=== PATIENT | female | born 1945 | race African-American/Black ===

== ENCOUNTER 2016-11-06 08:47 | Inpatient (IN) | payer MEDICARE, MEDICAID ==
[~2016-11-06] VITALS: Ht 170.2 cm; Wt 61.8 kg
[~2016-11-06 08:47] MED LIST: AMLO10TA80; ASPI-867 PO; CLOP75TA16 PO; DIAZ10TA4; HYDR1TAB4; LEVO100T9; PHEN100C4; SIMV40TA5
[2016-11-06 11:16] LABS: BASOPHILS % 0.9 % (0.0-2.0); EOSINOPHILS % 4.1 % (0.0-5.0); HEMATOCRIT. 27.4 % (36.0-48.0); HEMOGLOBIN. 9.2 g/dL (12.0-16.0); LYMPHOCYTES % 34.1 % (20.0-50.0); MEAN CORPUSCULAR HEMOGLOBIN 32.7 pg (28.0-32.0); MEAN CORPUSCULAR VOLUME 97.2 fL (81.0-99.0); MEAN PLATELET VOLUME 8.3 fl (7.4-10.4); MONOCYTES % 7.3 % (2.0-8.0); NEUTROPHILS % 53.6 % (40.0-76.0); PLATELET 294 x1000/uL (130-400); RED BLOOD CELL COUNT 2.82 mill/uL (4.2-5.4); RED CELL DISTRIBUTION WIDTH 17.3 % (11.6-14.6)
[2016-11-06 11:35] LABS: CARBON DIOXIDE 27 mEq/L (21-32); CHLORIDE 104 mEq/L (98-107); ETHANOL BLOOD < 10 mg/dL; INR 1.1; PROTHROMBIN TIME 11.4 sec (9.4-11.6); TROPONIN I < 0.02 ng/mL (0.00-0.04)
[2016-11-06 11:44] LABS: CREATINE KINASE 1944 IU/L (26-192)
[2016-11-06] MEDS ORDERED: POTASSIUM CHLORIDE 20MEQ TABLET SR PO ONE (12:15)
[2016-11-06 16:00] VITALS: BP 166/84
[2016-11-06] MEDS ORDERED: CLONIDINE 0.1MG TABLET PO PRN (16:15)
[2016-11-06] MEDS ORDERED: IPRATROPIUM/ALBUTEROL 0.5-3(2.5)MG/3ML NEB INH PRN (16:15)
[2016-11-06] MEDS ORDERED: ONDANSETRON HCL 4MG/2ML VIAL IV PRN (16:15)
[2016-11-06] MEDS ORDERED: POTASSIUM CHLORIDE 20MEQ TABLET SR PO NR (16:30)
[2016-11-06] MEDS: AMLODIPINE 10MG TABLET PO SCH (17:47)
[2016-11-06] MEDS: ENOXAPARIN 40MG/0.4ML SYR SUBCUT SCH (17:48)
[2016-11-06] MEDS: MORPHINE SULFATE 4 MG/ML CPJ (NOT FOR IM USE) IV PRN ×2 (17:48→21:38)
[2016-11-06 20:00] VITALS: BP 140/80
[2016-11-06] MEDS: SODIUM CHLORIDE 0.9% 1,000 ML IV SCH (21:39)
[2016-11-06 23:39] LABS: CREATINE KINASE 1863 IU/L (26-192)
[2016-11-07] VITALS: BP 124/78
[2016-11-07 04:49] VITALS: BP 120/64
[2016-11-07 06:43] LABS: BASOPHILS % 1.3 % (0.0-2.0); EOSINOPHILS % 8.2 % (0.0-5.0); HEMATOCRIT. 29.1 % (36.0-48.0); HEMOGLOBIN. 9.8 g/dL (12.0-16.0); LYMPHOCYTES % 37.6 % (20.0-50.0); MEAN CORPUSCULAR VOLUME 97.6 fL (81.0-99.0); MEAN PLATELET VOLUME 8.1 fl (7.4-10.4); MONOCYTES % 8.7 % (2.0-8.0); NEUTROPHILS % 44.2 % (40.0-76.0); PLATELET 281 x1000/uL (130-400); RED BLOOD CELL COUNT 2.98 mill/uL (4.2-5.4); RED CELL DISTRIBUTION WIDTH 17.2 % (11.6-14.6)
[2016-11-07] MEDS: PHENYTOIN SODIUM EXTENDED 100MG CAPSULE PO SCH (06:47)
[2016-11-07] MEDS ORDERED: LEVOTHYROXINE SODIUM 125MCG TABLET PO SCH (07:20)
[2016-11-07 07:36] LABS: CARBON DIOXIDE 26 mEq/L (21-32); CHLORIDE 106 mEq/L (98-107); HDL CHOLESTEROL 42 mg/dL (40-59); LDL CHOLESTEROL 222 mg/dL (5-100)
[2016-11-07 07:46] LABS: CREATINE KINASE 1608 IU/L (26-192)
[2016-11-07 08:00] VITALS: BP 130/73
[2016-11-07] MEDS: CLOPIDOGREL 75MG TABLET PO SCH (08:43)
[2016-11-07] MEDS: AMLODIPINE 10MG TABLET PO SCH (08:43)
[2016-11-07] MEDS: ASPIRIN 325MG EC TABLET PO SCH (08:44)
[2016-11-07] MEDS ORDERED: LEVOTHYROXINE SODIUM 100MCG TABLET PO SCH (09:00)
[2016-11-07] MEDS: SODIUM CHLORIDE 0.9% 1,000 ML IV SCH (09:45)
[2016-11-07 11:30] VITALS: BP 129/67
[2016-11-07] MEDS: MORPHINE SULFATE 4 MG/ML CPJ (NOT FOR IM USE) IV PRN ×2 (11:56→22:19)
[2016-11-07 16:01] VITALS: BP 100/50
[2016-11-07] MEDS: ENOXAPARIN 40MG/0.4ML SYR SUBCUT SCH (17:07)
[2016-11-07 20:00] VITALS: BP 110/57
[2016-11-07] MEDS ORDERED: ATORVASTATIN CALCIUM 20MG TABLET PO SCH (21:00)
[2016-11-08] VITALS: BP 123/62
[2016-11-08 04:00] VITALS: BP 107/56
[2016-11-08 06:29] LABS: BASOPHILS % 1.1 % (0.0-2.0); EOSINOPHILS % 8.5 % (0.0-5.0); HEMATOCRIT. 29.2 % (36.0-48.0); HEMOGLOBIN. 9.8 g/dL (12.0-16.0); LYMPHOCYTES % 31.2 % (20.0-50.0); MEAN CORPUSCULAR HEMOGLOBIN 32.5 pg (28.0-32.0); MEAN CORPUSCULAR VOLUME 97.2 fL (81.0-99.0); MONOCYTES % 7.4 % (2.0-8.0); NEUTROPHILS % 51.8 % (40.0-76.0); PLATELET 330 x1000/uL (130-400); RED BLOOD CELL COUNT 3.01 mill/uL (4.2-5.4); RED CELL DISTRIBUTION WIDTH 17.4 % (11.6-14.6)
[2016-11-08] MEDS: PHENYTOIN SODIUM EXTENDED 100MG CAPSULE PO SCH (06:45)
[2016-11-08] MEDS: LEVOTHYROXINE SODIUM 175MCG TABLET PO SCH (06:46)
[2016-11-08 08:00] VITALS: BP 95/55
[2016-11-08 08:28] LABS: CARBON DIOXIDE 25 mEq/L (21-32); CHLORIDE 104 mEq/L (98-107)
[2016-11-08] MEDS: AMLODIPINE 10MG TABLET PO SCH (08:55)
[2016-11-08] MEDS: CLOPIDOGREL 75MG TABLET PO SCH (09:08)
[2016-11-08] MEDS: ASPIRIN 325MG EC TABLET PO SCH (09:09)
[2016-11-08 11:00] VITALS: BP 114/54
[2016-11-08] MEDS: MORPHINE SULFATE 4 MG/ML CPJ (NOT FOR IM USE) IV PRN (11:28)
[2016-11-08] MEDS: POTASSIUM CHLORIDE 20MEQ TABLET SR PO SCH (12:33)
[2016-11-08 16:00] VITALS: BP 101/59
[2016-11-08] MEDS: ENOXAPARIN 40MG/0.4ML SYR SUBCUT SCH (17:31)
[2016-11-08 20:00] VITALS: BP 109/53
[2016-11-08] MEDS: ATORVASTATIN CALCIUM 40MG TABLET PO SCH (21:58)
[2016-11-09] VITALS: BP 150/60
[2016-11-09 04:00] VITALS: BP 110/57
[2016-11-09] MEDS: MORPHINE SULFATE 4 MG/ML CPJ (NOT FOR IM USE) IV PRN ×3 (05:44→21:30)
[2016-11-09] MEDS: LEVOTHYROXINE SODIUM 175MCG TABLET PO SCH (07:01)
[2016-11-09] MEDS: PHENYTOIN SODIUM EXTENDED 100MG CAPSULE PO SCH (07:01)
[2016-11-09 07:36] VITALS: BP 121/65
[2016-11-09] MEDS: POTASSIUM CHLORIDE 20MEQ TABLET SR PO SCH ×2 (08:34→08:44)
[2016-11-09] MEDS: CLOPIDOGREL 75MG TABLET PO SCH (08:34)
[2016-11-09] MEDS: ASPIRIN 325MG EC TABLET PO SCH (08:34)
[2016-11-09] MEDS: AMLODIPINE 10MG TABLET PO SCH (08:35)
[2016-11-09] MEDS: POTASSIUM CHLORIDE 20MEQ/PACKET PO SCH (10:39)
[2016-11-09 11:25] VITALS: BP 107/51
[2016-11-09 16:00] VITALS: BP 106/52
[2016-11-09] MEDS: ENOXAPARIN 40MG/0.4ML SYR SUBCUT SCH (17:08)
[2016-11-09 20:00] VITALS: BP 121/60
[2016-11-09] MEDS: ATORVASTATIN CALCIUM 40MG TABLET PO SCH (21:30)
[2016-11-10] VITALS: BP 106/55
[2016-11-10 04:00] VITALS: BP 142/76
[2016-11-10] MEDS: PHENYTOIN SODIUM EXTENDED 100MG CAPSULE PO SCH (06:25)
[2016-11-10] MEDS: LEVOTHYROXINE SODIUM 175MCG TABLET PO SCH (06:25)
[2016-11-10 07:25] VITALS: BP 124/68
[2016-11-10] MEDS: POTASSIUM CHLORIDE 20MEQ/PACKET PO SCH (09:08)
[2016-11-10] MEDS: ASPIRIN 325MG EC TABLET PO SCH (09:10)
[2016-11-10] MEDS: CLOPIDOGREL 75MG TABLET PO SCH (09:10)
[2016-11-10] MEDS: AMLODIPINE 10MG TABLET PO SCH (09:10)
[2016-11-10 12:00] VITALS: BP 130/54
[2016-11-10 15:33] VITALS: BP 107/50
[2016-11-10] MEDS: ENOXAPARIN 40MG/0.4ML SYR SUBCUT SCH (16:14)
[2016-11-10] MEDS: DOCUSATE SODIUM 100MG CAPSULE PO SCH (17:46)
[2016-11-10 19:02] LABS: BASOPHILS % 1.5 % (0.0-2.0); EOSINOPHILS % 7.1 % (0.0-5.0); HEMATOCRIT. 32.3 % (36.0-48.0); HEMOGLOBIN. 10.7 g/dL (12.0-16.0); LYMPHOCYTES % 30.4 % (20.0-50.0); MEAN CORPUSCULAR HEMOGLOBIN 32.5 pg (28.0-32.0); MEAN CORPUSCULAR VOLUME 98.4 fL (81.0-99.0); MEAN PLATELET VOLUME 7.3 fl (7.4-10.4); MONOCYTES % 10.6 % (2.0-8.0); NEUTROPHILS % 50.4 % (40.0-76.0); PLATELET 333 x1000/uL (130-400); RED BLOOD CELL COUNT 3.28 mill/uL (4.2-5.4); RED CELL DISTRIBUTION WIDTH 18.2 % (11.6-14.6)
[2016-11-10 19:16] LABS: CARBON DIOXIDE 25 mEq/L (21-32); CHLORIDE 105 mEq/L (98-107)
[2016-11-10 20:00] VITALS: BP 122/59
[2016-11-10] MEDS: ATORVASTATIN CALCIUM 40MG TABLET PO SCH (20:28)
[2016-11-10] MEDS: MORPHINE SULFATE 4 MG/ML CPJ (NOT FOR IM USE) IV PRN (22:23)
[2016-11-11] VITALS (7 sets, daily range): BP systolic 101–169; BP diastolic 50–116
[2016-11-11] MEDS: LEVOTHYROXINE SODIUM 175MCG TABLET PO SCH (06:52)
[2016-11-11] MEDS: PHENYTOIN SODIUM EXTENDED 100MG CAPSULE PO SCH (06:52)
[2016-11-11 07:10] LABS: BASOPHILS % 1.3 % (0.0-2.0); EOSINOPHILS % 8.7 % (0.0-5.0); HEMATOCRIT. 28.1 % (36.0-48.0); HEMOGLOBIN. 9.4 g/dL (12.0-16.0); LYMPHOCYTES % 29.3 % (20.0-50.0); MEAN CORPUSCULAR HEMOGLOBIN 33.1 pg (28.0-32.0); MEAN CORPUSCULAR VOLUME 98.8 fL (81.0-99.0); MEAN PLATELET VOLUME 7.6 fl (7.4-10.4); MONOCYTES % 11.8 % (2.0-8.0); NEUTROPHILS % 48.9 % (40.0-76.0); PLATELET 335 x1000/uL (130-400); RED BLOOD CELL COUNT 2.85 mill/uL (4.2-5.4); RED CELL DISTRIBUTION WIDTH 18.9 % (11.6-14.6)
[2016-11-11 07:24] LABS: CARBON DIOXIDE 24 mEq/L (21-32); CHLORIDE 107 mEq/L (98-107)
[2016-11-11] MEDS: CLOPIDOGREL 75MG TABLET PO SCH (09:03)
[2016-11-11] MEDS: DOCUSATE SODIUM 100MG CAPSULE PO SCH (09:03)
[2016-11-11] MEDS: ASPIRIN 325MG EC TABLET PO SCH (09:03)
[2016-11-11] MEDS: MORPHINE SULFATE 4 MG/ML CPJ (NOT FOR IM USE) IV PRN (09:48)
[2016-11-11] MEDS: ENOXAPARIN 40MG/0.4ML SYR SUBCUT SCH (17:36)
[2016-11-11] MEDS: ATORVASTATIN CALCIUM 40MG TABLET PO SCH (20:53)
[2016-11-11] MEDS: ACETAMINOPHEN 325MG TABLET PO PRN (23:01)
[2016-11-12 00:51] VITALS: BP 120/62
[2016-11-12 04:37] VITALS: BP 110/54
[2016-11-12] MEDS: LEVOTHYROXINE SODIUM 175MCG TABLET PO SCH (06:13)
[2016-11-12] MEDS: PHENYTOIN SODIUM EXTENDED 100MG CAPSULE PO SCH (06:13)
[2016-11-12 08:00] VITALS: BP 95/49
[2016-11-12] MEDS: ASPIRIN 325MG EC TABLET PO SCH (08:17)
[2016-11-12] MEDS: CLOPIDOGREL 75MG TABLET PO SCH (08:17)
[2016-11-12] MEDS: DOCUSATE SODIUM 100MG CAPSULE PO SCH (08:17)
[2016-11-12] MEDS: ACETAMINOPHEN 325MG TABLET PO PRN (08:20)
[2016-11-12 12:00] VITALS: BP 120/61
[2016-11-12 16:00] VITALS: BP 134/62
[2016-11-12 16:29] VITALS: BP 134/62
== END 2016-11-12 16:55 | disposition home or self-care (01) | DRG 351 ==
LOC: ER 09:11 → 6WST 12:08 → ENRESERV 12:43
PROVIDERS: ADMIT Internal Medicine Nephrology; ATTEND Internal Medicine Nephrology
DX: M62.82 Rhabdomyolysis (principal); E43 Unspecified severe protein-calorie malnutrition; J96.10 Chronic respiratory failure, unspecified whether with hypoxia or hypercapnia; I95.9 Hypotension, unspecified; Z93.0 Tracheostomy status; S09.90XA Unspecified injury of head, initial encounter; J44.9 Chronic obstructive pulmonary disease, unspecified; R13.10 Dysphagia, unspecified; I69.351 Hemiplegia and hemiparesis following cerebral infarction affecting right dominant side; D64.9 Anemia, unspecified; G40.909 Epilepsy, unspecified, not intractable, without status epilepticus; E87.6 Hypokalemia; E03.9 Hypothyroidism, unspecified; E78.00 Pure hypercholesterolemia, unspecified; H54.7 Unspecified visual loss; I10 Essential (primary) hypertension; I25.10 Atherosclerotic heart disease of native coronary artery without angina pectoris; R29.6 Repeated falls; F32.9 Major depressive disorder, single episode, unspecified; W18.30XA Fall on same level, unspecified, initial encounter; Z82.49 Family history of ischemic heart disease and other diseases of the circulatory system; Z91.81 History of falling; Z87.891 Personal history of nicotine dependence; Z98.61 Coronary angioplasty status; Z99.3 Dependence on wheelchair; Z79.82 Long term (current) use of aspirin; Z79.899 Other long term (current) drug therapy; Y93.89 Activity, other specified; Y92.89 Other specified places as the place of occurrence of the external cause; Y99.8 Other external cause status; Z68.21 Body mass index [BMI] 21.0-21.9, adult
CPT/HCPCS: 36415; 70450; 71010; 73060; 73502; 73552; 80048; 80053; 80061; 80185; 82550; 83735; 83880; 84443; 84484; 85025; 85610; 86850; 86900; 92523; 92610; 93970; 97110; 97116; 97163; 97167; 97530; 99285; G0482; J1650; J2270; J7030

== ENCOUNTER 2017-04-10 06:36 | Emergency (ER) | payer MEDICARE, MEDICAID ==
[~2017-04-10] VITALS: Ht 167.6 cm; Wt 59.0 kg
[2017-04-10 09:25] LABS: EOSINOPHILS % 4.6 % (0.0-5.0); HEMATOCRIT. 31.3 % (36.0-48.0); HEMOGLOBIN. 10.4 g/dL (12.0-16.0); LYMPHOCYTES % 28.5 % (20.0-50.0); MEAN CORPUSCULAR HEMOGLOBIN 33.8 pg (28.0-32.0); MEAN CORPUSCULAR VOLUME 101.1 fL (81.0-99.0); MONOCYTES % 8.8 % (2.0-8.0); NEUTROPHILS % 57.1 % (40.0-76.0); PLATELET 259 x1000/uL (130-400); RED BLOOD CELL COUNT 3.09 mill/uL (4.2-5.4); RED CELL DISTRIBUTION WIDTH 16.7 % (11.6-14.6)
[2017-04-10 09:30] LABS: INR 1.1
[2017-04-10 09:35] LABS: CHLORIDE 105 mEq/L (98-107)
[2017-04-10 09:40] LABS: TROPONIN I < 0.02 ng/mL (0.00-0.04)
[2017-04-10 13:45] VITALS: BP 128/71
== END 2017-04-10 14:27 | disposition home or self-care (01) ==
LOC: ER 06:36
DX: J06.9 Acute upper respiratory infection, unspecified (principal); I44.0 Atrioventricular block, first degree; D53.9 Nutritional anemia, unspecified; I69.351 Hemiplegia and hemiparesis following cerebral infarction affecting right dominant side; I10 Essential (primary) hypertension; E11.9 Type 2 diabetes mellitus without complications; G40.909 Epilepsy, unspecified, not intractable, without status epilepticus; E03.9 Hypothyroidism, unspecified; R74.0 Nonspecific elevation of levels of transaminase and lactic acid dehydrogenase [LDH]; Z93.0 Tracheostomy status; Z79.82 Long term (current) use of aspirin
CPT/HCPCS: 36415; 71045; 80053; 83880; 84484; 85025; 85610; 93005; 99283; 99285

== ENCOUNTER 2017-04-10 16:04 | Emergency (ER) | payer MEDICARE, MEDICAID ==
[~2017-04-10] VITALS: Ht 165.1 cm; Wt 60.0 kg
[2017-04-10 16:32] VITALS: BP 118/64
== END 2017-04-10 17:46 | disposition home or self-care (01) ==
LOC: ER 16:22
DX: Z00.00 Encounter for general adult medical examination without abnormal findings (principal); E11.9 Type 2 diabetes mellitus without complications; I10 Essential (primary) hypertension; Z86.73 Personal history of transient ischemic attack (TIA), and cerebral infarction without residual deficits; Z79.82 Long term (current) use of aspirin
CPT/HCPCS: 99283

== ENCOUNTER 2017-08-03 12:45 | Emergency (ER) | payer MEDICARE, MEDICAID ==
[~2017-08-03] VITALS: Ht 170.2 cm; Wt 68.0 kg
[2017-08-03 14:23] LABS: BASOPHILS % 1.3 % (0.0-2.0); EOSINOPHILS % 7.4 % (0.0-5.0); HEMATOCRIT. 30.7 % (36.0-48.0); HEMOGLOBIN. 10.2 g/dL (12.0-16.0); LYMPHOCYTES % 32.6 % (20.0-50.0); MEAN CORPUSCULAR HEMOGLOBIN 34.4 pg (28.0-32.0); MEAN CORPUSCULAR VOLUME 103.6 fL (81.0-99.0); MONOCYTES % 12.5 % (2.0-8.0); NEUTROPHILS % 46.2 % (40.0-76.0); RED BLOOD CELL COUNT 2.96 mill/uL (4.2-5.4)
[2017-08-03 14:25] LABS: CHLORIDE 108 mEq/L (98-107)
[2017-08-03 14:27] LABS: INR 1.2
[2017-08-03 14:48] LABS: MEAN PLATELET VOLUME 7.5 fl (7.4-10.4)
[2017-08-03 14:49] LABS: PLATELET 263 x1000/uL (130-400)
[2017-08-03] MEDS: KETOROLAC 15MG/ML VIAL IV NR ×2 (15:51→16:09)
[2017-08-03 15:57] LABS: CLARITY URINE CLEAR (CLEAR); COLOR URINE YELLOW (YELLOW); KETONES URINE NEGATIVE (NEGATIVE); LEUKOCYTE ESTERASE URINE TRACE (NEGATIVE); NITRITE URINE NEGATIVE (NEGATIVE); OCCULT BLOOD URINE NEGATIVE (NEGATIVE); PH URINE 5.5 (4.5-8.0); PROTEIN URINE NEGATIVE (NEGATIVE); SPECIFIC GRAVITY URINE 1.015 (1.005-1.030); UROBILINOGEN URINE 0.2 E.U./dL (0.2-1.0)
[2017-08-03 16:09] VITALS: BP 117/63
[2017-08-03] MEDS ORDERED: FLUCONAZOLE 150MG TABLET PO NR (16:43)
== END 2017-08-03 16:44 | disposition left against medical advice (07) ==
LOC: ER 13:16
DX: N39.0 Urinary tract infection, site not specified (principal); B37.9 Candidiasis, unspecified; I44.0 Atrioventricular block, first degree; E88.09 Other disorders of plasma-protein metabolism, not elsewhere classified; D53.9 Nutritional anemia, unspecified; F17.200 Nicotine dependence, unspecified, uncomplicated; I69.351 Hemiplegia and hemiparesis following cerebral infarction affecting right dominant side; Z93.0 Tracheostomy status
CPT/HCPCS: 36415; 80053; 81003; 83690; 85025; 85610; 93005; 96374; 99285; J1885